=== PATIENT | female | born 1940 | race Caucasian/White ===

== ENCOUNTER → 2018-11-05 | Day surgery (SDC) | payer MEDICARE, BC ==
[~2018-11-05] MED LIST: Lactated Ringers 1,000 ML IV SCH; Propofol 200 MG/20 ML SDV ONE; Sodium Chloride 0.9% 10 ML Syringe FLUSH PRN
--- NOTE | 2018-11-05 11:15 | PCM.PN ---
- General Info Date of Service: 11/05/18 - Review of Systems Systems Review Comment:: 78-year-old female referred for EGD and colonoscopy. She has a history of unexplained diarrhea. She also has been having acid reflux symptoms. In addition there is a family history of colon cancer and a personal history of colon polyps. The patient is medically stable to proceed today her recent history and physical is reviewed and no significant changes are noted. I discussed the proposed EGD and colonoscopy wh the patient. She agrees to proceed accepting risks. - Patient Data Vitals - Most Recent: Last Vital Signs Temp 98.5 F 11/05/18 09:03 Pulse 76 11/05/18 09:03 Resp 16 11/05/18 09:03 BP 120/81 11/05/18 09:03 Pulse Ox 95 11/05/18 09:03 Weight - Most Recent: 75.296 kg Med Orders - Current: Current Medications Lactated Ringer's (Ringers, Lactated) 1,000 mls @ 125 mls/hr IV ASDIRECTED [facility] Last Admin: 11/05/18 09:17 Dose: 125 mls/hr Sodium Chloride (Saline Flush) 10 ml FLUSH ASDIRECTED PRN PRN Reason: Keep Vein Open - Problem List Review Problem List Initiated/Reviewed/Updated: Yes - Assessment Assessment:: GERD unexplained diarrhea History of colon polyps Family history of colon cancer - Plan Plan:: EGD and colonoscopy
--- NOTE | 2018-11-05 12:33 | PCM.OPNOTE ---
- General Post-Op/Procedure Note Date of Surgery/Procedure: 11/05/18 Operative Procedure(s): EGD with Biopsy. Colonoscopy with Biopsy Findings: Small Hiatal hernia Few small polyps in upper stomach Stomach and Duodenum otherwise normal Extensive Sigmoid Diverticulosis without acute inflammation Coln and Terminal Ileum otherwise normal Pre Op Diagnosis: Unexplained Diarrhea. History of colon polyps. Family history of colon cancer Post-Op Diagnosis: Haital hernia. Gastric Polyps. Sigmoid Diverticulosis Anesthesia Technique: [facility] [place] Primary Surgeon: Marcus Donis Pathology: Biopsies in stomach, duodenum and ileum and colon EBL in mLs: 5 Complications: None Condition: Good
--- NOTE | 2018-11-05 14:12 | OR ---
Date of Procedure: 11/05/2018 PREOPERATIVE DIAGNOSES: 1. Unexplained diarrhea. 2. History of colon polyps. POSTOPERATIVE DIAGNOSES: 1. Hiatal hernia. 2. Sigmoid diverticulosis. 3. Gastric polyps. OPERATIONS PERFORMED: Esophagogastroduodenoscopy with biopsy and colonoscopy with biopsy. INDICATIONS FOR SURGERY: This 78-year-old female who has been having symptoms of unexplained diarrhea. She also has a known personal history of colon polyps and a family history of colon cancer. FINDINGS: On upper endoscopy, the patient was noted to have a small hiatal hernia. There did not appear to be significant inflammation noted in the area. In the upper portion of her stomach, she had some small benign-appearing gastric polyps. The remainder of her stomach and duodenum appeared normal. On lower endoscopy, her terminal ileum appeared normal. She did have extensive sigmoid diverticulosis but without visible signs of inflammation and the remainder of her colon appeared normal. No polyps were seen today. DESCRIPTION OF PROCEDURE: The patient was taken to the operating room. She was given intravenous sedation, and her throat was topically anesthetized. The esophagus was intubated with the Olympus gastroscope. This was carefully advanced under direct visualization down through the esophagus, stomach, and into the duodenum, where examination to the fourth portion was performed. Random biopsies of the duodenal mucosa were taken because of her history of diarrhea. The scope was withdrawn back into the stomach where full examination including retroflexed examination of the fundus was performed. Random biopsies of the antrum were taken to rule out H. pylori. Also, biopsies of the upper gastric polyps were also taken. The GE junction and esophagus were then re- examined as the scope was removed. Attention was turned to colonoscopy. Digital rectal exam was performed. No rectal masses were noted. The Olympus colonoscope was inserted into the rectum. Retroflexed examination of the rectal canal was performed. The scope was then carefully advanced under direct visualization through the entire length of the colon until the cecum was reached. This was somewhat difficult because of tortuosity of the colon and the diverticulosis, but eventually with hand pressure, the cecum was cannulated and its identity confirmed by noting the normal internal cecal anatomy including the appendiceal orifice and ileocecal valve. The ileocecal valve was cannulated and the terminal ileum examined, which appeared normal. Random biopsies of the terminal ileum were taken. The scope was then slowly withdrawn sequentially re- examining the colonic segments. During withdrawal of the scope, random biopsies of the right and left colon were taken because of her history of diarrhea. Once the exam had been completed and with no sign of any complication, the scope was removed and the patient was taken from the operating room in satisfactory condition. ESTIMATED BLOOD LOSS: 5 mL. COMPLICATIONS: None. PROGNOSIS: Good. COTY Donis MD /[id number]
== END | disposition home or self-care (01) ==
LOC: LL.SDS 08:38
PROVIDERS: ATTEND Surgery
DX: K57.30 Diverticulosis of large intestine without perforation or abscess without bleeding (principal); K31.7 Polyp of stomach and duodenum; K44.9 Diaphragmatic hernia without obstruction or gangrene; K31.89 Other diseases of stomach and duodenum; K63.89 Other specified diseases of intestine; K21.9 Gastro-esophageal reflux disease without esophagitis; Z88.6 Allergy status to analgesic agent; Z88.5 Allergy status to narcotic agent; Z88.0 Allergy status to penicillin; Z88.8 Allergy status to other drugs, medicaments and biological substances; Z86.010 Personal history of colon polyps; Z80.0 Family history of malignant neoplasm of digestive organs; Z79.899 Other long term (current) drug therapy
CPT/HCPCS: 00813; J2704; J7120